=== PATIENT | male | born 1985 | race African-American/Black ===

== ENCOUNTER 2021-01-08 11:34 | Emergency (ER) | payer MEDICAID ==
[~2021-01-08] VITALS: Ht 167.6 cm; Wt 81.0 kg
[2021-01-08] MEDS ORDERED: METHOCARBAMOL 500MG TABLET PO ONE (12:30)
[2021-01-08] MEDS ORDERED: KETOROLAC 60MG/2ML VIAL IM ONE (12:30)
[2021-01-08] MEDS ORDERED: GUAI-741 MT ×2 (12:53)
[2021-01-08 13:01] VITALS: BP 128/79
[2021-01-08] MEDS ORDERED: NAPR-681 MT (13:19)
== END 2021-01-08 13:56 | disposition home or self-care (01) ==
LOC: ER 11:34
DX: M25.512 Pain in left shoulder (principal); M54.6 Pain in thoracic spine; F17.210 Nicotine dependence, cigarettes, uncomplicated
CPT/HCPCS: 71045; 73030; 96372; 99284; J1885